=== PATIENT | male | born 1945 | race Native Hawaiian/Other Pacific Islander ===

== ENCOUNTER 2022-09-27 20:50 | Inpatient (IN) | payer MEDICARE ==
[~2022-09-27] VITALS: Ht 170.2 cm; Wt 72.4 kg
[2022-09-27] MEDS ORDERED: METF-81 PO (21:06)
[2022-09-27] MEDS ORDERED: ATOR10TA PO (21:06)
[2022-09-27] MEDS ORDERED: CHOL25TA4 PO (21:06)
[2022-09-27] MEDS ORDERED: SODIUM CHLORIDE 0.9% 1,000 ML IV ONE (22:15)
[2022-09-27 22:38] LABS: COVID AG,FIA SOURCE NASAL SWAB
[2022-09-27 22:40] LABS: BASOPHILS % (AUTO) 0.5 % (0.0-2.0); HEMATOCRIT 44.4 % (41-53); HEMOGLOBIN 14.3 g/dL (13.5-17.5); LYMPHOCYTES # (AUTO) 1.1 K/uL (1.0-4.8); LYMPHOCYTES % (AUTO) 10.6 % (22.0-44.0); MEAN CORPUSCULAR HEMOGLOBIN 29.3 pg (26.0-34.0); MEAN CORPUSCULAR HGB CONC 32.1 G/dL (31.0-37.0); MEAN CORPUSCULAR VOLUME 91 fL (80-100); MONOCYTES # (AUTO) 0.6 K/uL (0.1-1.0); MONOCYTES % (AUTO) 5.9 % (2.0-9.0); NEUTROPHILS # (AUTO) 8.2 K/uL (1.8-7.7); PLATELET COUNT (AUTO) 283 K/uL (150-450); RED BLOOD CELL COUNT(AUTO) 4.86 MIL/uL (4.50-5.90); RED CELL DISTRIBUTION WIDTH 15.2 % (11.5-14.5)
[2022-09-27 22:55] LABS: INR 1.2 (0.9-1.1); PROTHROMBIN TIME 12.7 SEC (9.4-11.6)
[2022-09-27 22:59] LABS: CALCIUM, TOTAL 8.7 mg/dL (8.8-10.5); CREATININE 1.25 mg/dL (0.60-1.30); POTASSIUM 4.8 mmol/L (3.5-5.1)
[2022-09-27 23:04] LABS: ALBUMIN 3.2 g/dL (3.4-5.0); BILIRUBIN,TOTAL 0.5 mg/dL (0.1-1.0)
[2022-09-27 23:05] LABS: INFLUENZA TYPE A NEGATIVE FOR TYPE A (NEGATIVE); INFLUENZA TYPE B NEGATIVE FOR TYPE B (NEGATIVE)
[2022-09-27] MEDS ORDERED: FUROSEMIDE 40 MG/4 ML VIAL IVP ONE (23:45)
[2022-09-28 00:02] LABS: APPEARANCE,URINE CLEAR (CLEAR); BILIRUBIN,URINE NEGATIVE (NEGATIVE); GLUCOSE, URINE (UA) NEGATIVE (NEGATIVE); KETONES,URINE NEGATIVE (NEGATIVE); LEUKOCYTE ESTERASE ,URINE NEGATIVE (NEGATIVE); NITRATE,URINE NEGATIVE (NEGATIVE); OCCULT BLOOD,URINE NEGATIVE (NEGATIVE); PH,URINE 5.5 (5.0-8.0); PROTEIN,URINE 100-200,SEE CONFIRM mg/dL (NEGATIVE); SPECIFIC GRAVITIY, URINE 1.029 (1.003-1.030)
[2022-09-28 00:08] LABS: AMPHET/METH SCREEN,URINE POSITIVE (NEGATIVE); BARBITURATE SCREEN, URINE NEGATIVE (NEGATIVE); BENZODIAZEPINES SCREEN,URINE NEGATIVE (NEGATIVE); CANNABINOID SCREEN,URINE NEGATIVE (NEGATIVE); COCAINE SCREEN,URINE NEGATIVE (NEGATIVE); METHADONE SCREEN, URINE NEGATIVE (NEGATIVE); OPIATE SCREEN,URINE NEGATIVE (NEGATIVE)
[2022-09-28 00:11] LABS: SULFOSALICYLIC ACID,URINE 1+ (Negative)
[2022-09-28 00:13] LABS: BACTERIA,URINE None Seen /HPF (None Seen); RBC,URINE None Seen /HPF (0-2); SQUAMOUS EPITHELIAL CELL,UR Rare /LPF (None Seen); WBC,URINE 0-2 /HPF (0-5)
[2022-09-28 00:15] LABS: PHENCYCLIDINE SCREEN,URINE NEGATIVE (NEGATIVE)
[2022-09-28 02:32] VITALS: BP 159/109
[2022-09-28 05:21] VITALS: BP 158/118
[2022-09-28 07:20] VITALS: BP 123/76
[2022-09-28] MEDS ORDERED: ACETAMINOPHEN 325 MG TABLET PO PRN (07:30)
[2022-09-28] MEDS ORDERED: ONDANSETRON HCL 4 MG/2 ML VIAL IVP PRN (07:30)
[2022-09-28] MEDS ORDERED: DEXTROSE 50%-WATER 25 GM/50 ML SYRINGE IVP PRN (07:45)
[2022-09-28] MEDS: FAMOTIDINE 20 MG TABLET PO SCH (08:18)
[2022-09-28] MEDS: METOPROLOL SUCCINATE 25 MG ER TABLET PO SCH (08:18)
[2022-09-28] MEDS: FUROSEMIDE 20 MG/2 ML VIAL IVP SCH (08:18)
[2022-09-28] MEDS: SPIRONOLACTONE 25 MG TABLET PO SCH (08:18)
[2022-09-28] MEDS: DOCUSATE SODIUM 100 MG CAPSULE PO SCH ×2 (08:18→20:07)
[2022-09-28] MEDS: ATORVASTATIN CALCIUM 20 MG TABLET PO SCH (08:18)
[2022-09-28] MEDS: ASPIRIN 81 MG CHEWABLE TABLET PO SCH (08:19)
[2022-09-28] MEDS: HEPARIN SODIUM,PORCINE 5,000 UNITS/ML VIAL SQ SCH ×2 (08:19→16:00)
[2022-09-28] MEDS ORDERED: LISINOPRIL 5 MG TABLET PO SCH (09:00)
[2022-09-28 12:10] VITALS: BP 116/80
[2022-09-28] MEDS ORDERED: AMIODARONE HCL 50 MG/ML 3 ML VIAL IVP ONE ×2 (13:45→15:15)
[2022-09-28 15:16] LABS: GLUCOMETER DEV NAME(LOC) 5S.2B; GLUCOSE,POINT OF CARE 110 MG/DL (70-110)
[2022-09-28] MEDS ORDERED: SODIUM CHLORIDE 0.9% 500 ML IV ONE (15:39)
[2022-09-28] MEDS ORDERED: AMIODARONE HCL 150 MG in DEXTROSE 5%-WATER 97 ML IV ONE (15:45)
[2022-09-28 16:25] VITALS: BP 109/69
[2022-09-28] MEDS ORDERED: AMIODARONE HCL 360 MG in DEXTROSE 5%-WATER 242.8 ML IV ONE (17:30)
[2022-09-28 19:14] VITALS: BP 100/65
[2022-09-28] MEDS: INSULIN LISPRO 100 UNITS/ML SQ PRN (20:10)
[2022-09-28 20:16] LABS: GLUCOMETER DEV NAME(LOC) 5S.2B; GLUCOSE,POINT OF CARE 204 MG/DL (70-110)
[2022-09-28] MEDS ORDERED: AMIODARONE HCL 540 MG in DEXTROSE 5%-WATER 239.2 ML IV ONE (23:30)
[2022-09-29] MEDS: HEPARIN SODIUM,PORCINE 5,000 UNITS/ML VIAL SQ SCH ×3 (00:11→16:00)
[2022-09-29 00:32] VITALS: BP 114/62
[2022-09-29 04:24] VITALS: BP 125/60
[2022-09-29 07:27] VITALS: BP 101/65
[2022-09-29] MEDS: LOSARTAN POTASSIUM 25 MG TABLET PO SCH ×2 (07:59→08:25)
[2022-09-29] MEDS: ASPIRIN 81 MG CHEWABLE TABLET PO SCH (08:00)
[2022-09-29] MEDS: FAMOTIDINE 20 MG TABLET PO SCH (08:01)
[2022-09-29] MEDS: ATORVASTATIN CALCIUM 20 MG TABLET PO SCH (08:01)
[2022-09-29] MEDS: SPIRONOLACTONE 25 MG TABLET PO SCH ×2 (08:01→08:23)
[2022-09-29] MEDS: FUROSEMIDE 20 MG/2 ML VIAL IVP SCH (08:02)
[2022-09-29] MEDS: METOPROLOL SUCCINATE 25 MG ER TABLET PO SCH ×2 (08:06→08:16)
[2022-09-29] MEDS: DOCUSATE SODIUM 100 MG CAPSULE PO SCH ×2 (08:17→21:25)
[2022-09-29 08:42] LABS: CREATININE 2.22 mg/dL (0.60-1.30); POTASSIUM 5.9 mmol/L (3.5-5.1)
[2022-09-29 11:13] VITALS: BP 110/72
[2022-09-29] MEDS ORDERED: SODIUM POLYSTYRENE SULFONATE 15 GM/60 ML SUSPENSION BOTTLE PO ONE (12:30)
[2022-09-29 15:54] VITALS: BP 130/86
[2022-09-29] MEDS: INSULIN LISPRO 100 UNITS/ML SQ PRN ×2 (17:20→21:26)
[2022-09-29] MEDS ORDERED: AMIODARONE HCL 750 MG in DEXTROSE 5%-WATER 485 ML IV SCH (17:30)
[2022-09-29 20:07] LABS: GLUCOMETER DEV NAME(LOC) 5S.1B; GLUCOSE,POINT OF CARE 116 MG/DL (70-110)
[2022-09-29 20:07] LABS: GLUCOMETER DEV NAME(LOC) 5S.1B; GLUCOSE,POINT OF CARE 174 MG/DL (70-110)
[2022-09-29 20:30] VITALS: BP 143/84
[2022-09-29] MEDS ORDERED: DILTIAZEM HCL 5 MG/ML 5 ML VIAL IVP ONE (21:00)
[2022-09-29 21:05] LABS: CALCIUM, TOTAL 8.1 mg/dL (8.8-10.5); CREATININE 2.56 mg/dL (0.60-1.30); MAGNESIUM 2.1 mg/dL (1.80-2.40); POTASSIUM 4.7 mmol/L (3.5-5.1)
[2022-09-30] MEDS: GuaiFENesin SR 600 MG ER TABLET PO PRN ×3 (00:32→20:29)
[2022-09-30] MEDS: HEPARIN SODIUM,PORCINE 5,000 UNITS/ML VIAL SQ SCH ×3 (00:33→16:00)
[2022-09-30 01:13] VITALS: BP 104/63
[2022-09-30 02:16] LABS: GLUCOMETER DEV NAME(LOC) 5S.1B; GLUCOSE,POINT OF CARE 166 MG/DL (70-110)
[2022-09-30 05:01] VITALS: BP 117/63
[2022-09-30 07:24] VITALS: BP 118/68
[2022-09-30] MEDS: ASPIRIN 81 MG CHEWABLE TABLET PO SCH (08:30)
[2022-09-30] MEDS: FAMOTIDINE 20 MG TABLET PO SCH (08:30)
[2022-09-30] MEDS: METOPROLOL SUCCINATE 25 MG ER TABLET PO SCH (08:30)
[2022-09-30] MEDS: ATORVASTATIN CALCIUM 20 MG TABLET PO SCH (08:30)
[2022-09-30] MEDS: DOCUSATE SODIUM 100 MG CAPSULE PO SCH ×2 (09:00→20:30)
[2022-09-30 10:34] LABS: PLATELET COUNT (AUTO) 258 K/uL (150-450)
[2022-09-30 10:40] LABS: BASOPHILS % (AUTO) 0.8 % (0.0-2.0); EOSINOPHILS % (AUTO) 0.2 % (1.0-6.0); HEMATOCRIT 46.2 % (41-53); HEMOGLOBIN 15.1 g/dL (13.5-17.5); LYMPHOCYTES % (AUTO) 6.9 % (22.0-44.0); MEAN CORPUSCULAR HEMOGLOBIN 29.3 pg (26.0-34.0); MEAN CORPUSCULAR HGB CONC 32.7 G/dL (31.0-37.0); MEAN CORPUSCULAR VOLUME 90 fL (80-100); MONOCYTES # (AUTO) 0.6 K/uL (0.1-1.0); MONOCYTES % (AUTO) 4.2 % (2.0-9.0); NEUTROPHILS # (AUTO) 12.2 K/uL (1.8-7.7); RED BLOOD CELL COUNT(AUTO) 5.15 MIL/uL (4.50-5.90); RED CELL DISTRIBUTION WIDTH 14.9 % (11.5-14.5)
[2022-09-30 10:41] LABS: NEUTROPHILS % (AUTO) 87.9 % (40.0-70.0)
[2022-09-30 10:43] LABS: CREATININE 2.78 mg/dL (0.60-1.30); POTASSIUM 4.4 mmol/L (3.5-5.1)
[2022-09-30 10:54] LABS: ALBUMIN 2.3 g/dL (3.4-5.0); BILIRUBIN,TOTAL 0.7 mg/dL (0.1-1.0)
[2022-09-30 11:29] VITALS: BP 122/70
[2022-09-30 12:17] LABS: GLUCOMETER DEV NAME(LOC) 5S.2B; GLUCOSE,POINT OF CARE 41 MG/DL (70-110)
[2022-09-30 12:17] LABS: GLUCOMETER DEV NAME(LOC) 5S.2B; GLUCOSE,POINT OF CARE 109 MG/DL (70-110)
[2022-09-30 12:17] LABS: GLUCOMETER DEV NAME(LOC) 5S.2B; GLUCOSE,POINT OF CARE 84 MG/DL (70-110)
[2022-09-30 12:17] LABS: GLUCOMETER DEV NAME(LOC) 5S.2B; GLUCOSE,POINT OF CARE 87 MG/DL (70-110)
[2022-09-30 15:17] VITALS: BP 124/72
[2022-09-30 19:47] VITALS: BP 125/88
[2022-09-30] MEDS: INSULIN LISPRO 100 UNITS/ML SQ PRN (20:28)
[2022-09-30] MEDS: SODIUM CHLORIDE 0.9% 1,000 ML IV SCH (20:29)
[2022-09-30 20:41] LABS: GLUCOMETER DEV NAME(LOC) 5S.2B; GLUCOSE,POINT OF CARE 163 MG/DL (70-110)
[2022-09-30 21:16] LABS: GLUCOMETER DEV NAME(LOC) 5S.1B; GLUCOSE,POINT OF CARE 131 MG/DL (70-110)
[2022-09-30 21:17] LABS: GLUCOMETER DEV NAME(LOC) 5S.1B; GLUCOSE,POINT OF CARE 105 MG/DL (70-110)
[2022-10-01 00:12] VITALS: BP 119/74
[2022-10-01] MEDS: HEPARIN SODIUM,PORCINE 5,000 UNITS/ML VIAL SQ SCH ×4 (00:54→23:15)
[2022-10-01 03:06] LABS: HEPATITIS C AB (EIA) 0.2 s/co ratio (0.0-0.9)
[2022-10-01 04:18] VITALS: BP 150/86
[2022-10-01 06:27] LABS: GLUCOMETER DEV NAME(LOC) 5S.2B; GLUCOSE,POINT OF CARE 78 MG/DL (70-110)
[2022-10-01 06:38] LABS: BASOPHILS % (AUTO) 0.8 % (0.0-2.0); EOSINOPHILS % (AUTO) 1.3 % (1.0-6.0); HEMATOCRIT 45.1 % (41-53); HEMOGLOBIN 15.3 g/dL (13.5-17.5); LYMPHOCYTES # (AUTO) 0.8 K/uL (1.0-4.8); LYMPHOCYTES % (AUTO) 7.8 % (22.0-44.0); MEAN CORPUSCULAR HEMOGLOBIN 30.3 pg (26.0-34.0); MEAN CORPUSCULAR VOLUME 89 fL (80-100); MONOCYTES # (AUTO) 0.5 K/uL (0.1-1.0); MONOCYTES % (AUTO) 5.2 % (2.0-9.0); NEUTROPHILS # (AUTO) 8.8 K/uL (1.8-7.7); NEUTROPHILS % (AUTO) 84.9 % (40.0-70.0); PLATELET COUNT (AUTO) 250 K/uL (150-450); RED BLOOD CELL COUNT(AUTO) 5.06 MIL/uL (4.50-5.90)
[2022-10-01 07:11] LABS: ALBUMIN 2.5 g/dL (3.4-5.0); BILIRUBIN,TOTAL 0.8 mg/dL (0.1-1.0); CREATININE 1.92 mg/dL (0.60-1.30); POTASSIUM 5.2 mmol/L (3.5-5.1); TOTAL PROTEIN, SERUM 6.5 g/dL (6.4-8.2)
[2022-10-01 07:31] VITALS: BP 137/87
[2022-10-01] MEDS ORDERED: DILTIAZEM HCL 5 MG/ML 5 ML VIAL IVP ONE (08:45)
[2022-10-01] MEDS: METOPROLOL SUCCINATE 25 MG ER TABLET PO SCH (09:32)
[2022-10-01] MEDS: FAMOTIDINE 20 MG TABLET PO SCH (09:32)
[2022-10-01] MEDS: ASPIRIN 81 MG CHEWABLE TABLET PO SCH (09:32)
[2022-10-01] MEDS: GuaiFENesin SR 600 MG ER TABLET PO PRN ×2 (09:32→20:49)
[2022-10-01] MEDS: DOCUSATE SODIUM 100 MG CAPSULE PO SCH ×2 (09:32→20:49)
[2022-10-01] MEDS ORDERED: SODIUM ZIRCONIUM CYCLOSILICATE 5 GM POWDER PACKET PO ONE (11:00)
[2022-10-01 11:33] VITALS: BP 120/75
[2022-10-01 15:39] VITALS: BP 139/85
[2022-10-01] MEDS: SODIUM CHLORIDE 0.9% 1,000 ML IV SCH (16:42)
[2022-10-01 17:47] LABS: GLUCOMETER DEV NAME(LOC) 5S.1B; GLUCOSE,POINT OF CARE 140 MG/DL (70-110)
[2022-10-01 19:55] LABS: POTASSIUM 3.8 mmol/L (3.5-5.1)
[2022-10-01 20:16] LABS: GLUCOMETER DEV NAME(LOC) 5S.1B; GLUCOSE,POINT OF CARE 105 MG/DL (70-110)
[2022-10-01 21:07] LABS: PHOSPHORUS 2.8 mg/dL (2.5-4.9)
[2022-10-02 01:14] VITALS: BP 136/82
[2022-10-02] MEDS ORDERED: DILTIAZEM HCL 5 MG/ML 5 ML VIAL IVP ONE (01:45)
[2022-10-02 02:06] LABS: CREATININE,URINE RANDOM 105.8 mg/dL (30.0-125.0)
[2022-10-02 03:01] LABS: GLUCOMETER DEV NAME(LOC) 5S.2B; GLUCOSE,POINT OF CARE 104 MG/DL (70-110)
[2022-10-02 05:52] VITALS: BP 133/84
[2022-10-02 06:22] LABS: GLUCOMETER DEV NAME(LOC) 5S.1B; GLUCOSE,POINT OF CARE 144 MG/DL (70-110)
[2022-10-02 06:44] LABS: BASOPHILS % (AUTO) 0.5 % (0.0-2.0); EOSINOPHILS % (AUTO) 1.3 % (1.0-6.0); HEMATOCRIT 45.6 % (41-53); HEMOGLOBIN 15.1 g/dL (13.5-17.5); LYMPHOCYTES # (AUTO) 0.6 K/uL (1.0-4.8); LYMPHOCYTES % (AUTO) 7.4 % (22.0-44.0); MEAN CORPUSCULAR HEMOGLOBIN 29.5 pg (26.0-34.0); MEAN CORPUSCULAR HGB CONC 33.1 G/dL (31.0-37.0); MEAN CORPUSCULAR VOLUME 89 fL (80-100); MONOCYTES # (AUTO) 0.7 K/uL (0.1-1.0); MONOCYTES % (AUTO) 9.1 % (2.0-9.0); NEUTROPHILS # (AUTO) 6.7 K/uL (1.8-7.7); NEUTROPHILS % (AUTO) 81.7 % (40.0-70.0); PLATELET COUNT (AUTO) 186 K/uL (150-450); RED BLOOD CELL COUNT(AUTO) 5.12 MIL/uL (4.50-5.90)
[2022-10-02] MEDS ORDERED: ALBUTEROL SULFATE 2.5 MG/0.5 ML NEB SOLUTION NEB PRN (07:00)
[2022-10-02] MEDS ORDERED: IPRATROPIUM BROMIDE 0.5 MG/2.5 ML NEB SOLUTION NEB PRN (07:00)
[2022-10-02 07:11] LABS: ALBUMIN 2.4 g/dL (3.4-5.0); CALCIUM, TOTAL 7.9 mg/dL (8.8-10.5); CREATININE 1.49 mg/dL (0.60-1.30); POTASSIUM 4.6 mmol/L (3.5-5.1); TOTAL PROTEIN, SERUM 6.2 g/dL (6.4-8.2)
[2022-10-02] MEDS: METOPROLOL SUCCINATE 25 MG ER TABLET PO SCH (07:59)
[2022-10-02] MEDS: HEPARIN SODIUM,PORCINE 5,000 UNITS/ML VIAL SQ SCH (07:59)
[2022-10-02] MEDS: DOCUSATE SODIUM 100 MG CAPSULE PO SCH (08:00)
[2022-10-02] MEDS: GuaiFENesin SR 600 MG ER TABLET PO PRN (08:00)
[2022-10-02] MEDS: ASPIRIN 81 MG CHEWABLE TABLET PO SCH (08:01)
[2022-10-02] MEDS: FAMOTIDINE 20 MG TABLET PO SCH (08:01)
[2022-10-02 08:26] VITALS: BP 144/88
[2022-10-02 11:38] VITALS: BP 139/87
[2022-10-02] MEDS ORDERED: LORazepam 2 MG/ML VIAL IVP ONE (11:45)
[2022-10-02] MEDS ORDERED: LOSA-381 PO (15:16)
[2022-10-02] MEDS ORDERED: METO25XL PO (15:16)
[2022-10-02] MEDS ORDERED: SITA25 PO (15:16)
[2022-10-02] MEDS ORDERED: GUAIF600 PO (15:16)
[2022-10-02] MEDS ORDERED: ASPI81 PO (15:16)
[2022-10-02] MEDS ORDERED: FURO20 PO (15:16)
[2022-10-02 17:31] LABS: GLUCOMETER DEV NAME(LOC) 5S.1B; GLUCOSE,POINT OF CARE 134 MG/DL (70-110)
== END 2022-10-02 15:40 | disposition home or self-care (01) | DRG 291 ==
LOC: EMS 20:55 → 5S 23:30
PROVIDERS: ADMIT Internal Medicine; ATTEND Internal Medicine
PROC: 5A09357 Assistance with Respiratory Ventilation, Less than 24 Consecutive Hours, Continuous Positive Airway Pressure (ICD-10-PCS; principal; 2022-09-28)
DX: I13.0 Hypertensive heart and chronic kidney disease with heart failure and stage 1 through stage 4 chronic kidney disease, or unspecified chronic kidney disease (principal); I50.23 Acute on chronic systolic (congestive) heart failure; J96.01 Acute respiratory failure with hypoxia; I48.92 Unspecified atrial flutter; Q89.3 Situs inversus; N17.9 Acute kidney failure, unspecified; F15.10 Other stimulant abuse, uncomplicated; E11.22 Type 2 diabetes mellitus with diabetic chronic kidney disease; N18.30 Chronic kidney disease, stage 3 unspecified; E78.5 Hyperlipidemia, unspecified; E87.5 Hyperkalemia; I42.9 Cardiomyopathy, unspecified; I45.4 Nonspecific intraventricular block; E83.51 Hypocalcemia; Z20.822 Contact with and (suspected) exposure to COVID-19; Z87.891 Personal history of nicotine dependence; Z79.899 Other long term (current) drug therapy
CPT/HCPCS: 71045; 76770; 80048; 80053; 80074; 81001; 81002; 82570; 82962; 83036; 83735; 83880; 84100; 84132; 84156; 84484; 85025; 85610; 85730; 87804; 93005; 93306; 94640; 94660; 97116; 97162; 99285; J0282; J1644; J1940; J2060; J3490; J7030; J7040; J7060; Q9967; 36415-L1; 36415-TC; J7613